=== PATIENT | female | born 1945 | race Caucasian/White ===

== ENCOUNTER 2020-12-19 07:45 | Day surgery (SDC) | payer MEDICARE, BC ==
[~2020-12-19 07:45] MED LIST: Propofol 200 MG/20 ML SDV ONE; fentaNYL 100 MCG/2 ML SDV ONE
[2020-12-19] MEDS ORDERED: Dextrose 5%-Lactated Ringers 1,000 ML IV SCH (09:00)
[2020-12-19 10:49] VITALS: BP 136/54; PULSE 58
--- NOTE | 2021-01-06 09:15 | OR ---
DATE OF PROCEDURE: 12/19/2020 SURGEON: Zacarias Lara MD PREOPERATIVE DIAGNOSES: 1. Laryngopharyngeal dysphagia. 2. Family history of colon carcinoma. POSTOPERATIVE DIAGNOSES: 1. Laryngopharyngeal dysphagia with normal upper gastrointestinal endoscopy, status post Nicole-en-Y gastric bypass. 2. Family history of colon carcinoma with 3 mm rectal polyp. OPERATIVE PROCEDURES: 1. Upper gastrointestinal endoscopy. 2. Flexible colonoscopy with: a. Polypectomy by snare technique. b. Injection of Candice ink at the site of polypectomy site. ANESTHESIA: IV sedation. INDICATION FOR PROCEDURE: This is a 75-year-old female presenting with ongoing laryngopharyngeal dysphagia, status post Nicole-en-Y gastric bypass. She does not report much in the way of reflux type symptoms. The plan is to proceed with an upper GI endoscopy with biopsies and/or dilation as indicated. Also, we will proceed with a colonoscopy with polypectomy as indicated. Potential risks including bleeding and perforation were discussed, and the patient wishes to proceed. DETAILS OF PROCEDURE: The patient was taken to the operating room, placed in a left lateral decubitus position. IV sedation was administered after which the upper GI endoscope was passed orally through the length of the esophagus and into the area of the esophagogastric junction, gastric pouch. Gastrojejunostomy, roughly 20 cm into the Nicole limb. Overall, the findings were entirely normal. There was no obvious inflammation or other structural abnormalities within the laryngopharyngeal areas or the upper esophageal sphincter. Esophageal body was likewise unremarkable. There was no significant inflammation at the esophagogastric junction or stricturing at that level. The gastric pouch and gastrojejunostomy were unremarkable as was the visualized portion of the Nicole limb. The scope was then withdrawn and this segment of the procedure was then concluded. Attention was taken to the colonoscopy. Initial digital rectal exam was performed, it was unremarkable. The colonoscope was placed in the rectum with retroflexion revealing uncomplicated hemorrhoidal columns. Scope was eventually passed to the level of the cecum. Prep was quite good with only a small amount of liquid stool that was present to that level where there were no areas of diverticular disease or colitis. The patient had a single 7 mm polyp in the mid rectum, roughly 10 cm from the dentate line. This was excised by means of polypectomy snare technique. Good hemostasis was confirmed and Candice ink was injected submucosally adjacent to the polypectomy site to mari that in the event that this might be something needing a more formal resection. Procedure was then concluded. The patient was taken to the recovery room in satisfactory condition. Assuming that the present polypectomy is benign, one would consider a repeat colonoscopy in perhaps 3 years. Additionally, with the patient's laryngopharyngeal dysphagia, one might consider an ENT evaluation. Zacarias Lara MD /[id number]
== END 2020-12-19 11:09 | disposition home or self-care (01) ==
LOC: JP.SDS 07:45
PROVIDERS: ATTEND Surgery
DX: Z12.11 Encounter for screening for malignant neoplasm of colon (principal); D12.8 Benign neoplasm of rectum; R13.13 Dysphagia, pharyngeal phase; K64.9 Unspecified hemorrhoids; I25.10 Atherosclerotic heart disease of native coronary artery without angina pectoris; I11.0 Hypertensive heart disease with heart failure; E11.9 Type 2 diabetes mellitus without complications
CPT/HCPCS: 43235; 45381; 45385; 88305; J2704; J3010; J7121